=== PATIENT | male | born 1940 | race Caucasian/White ===

== ENCOUNTER 2022-03-26 22:59 | Inpatient (IN) | payer OTHER ==
[2022-03-27 00:27] LABS: INR 1.52 (0.83-1.09); PROTHROMBIN TIME (PATIENT) 17.5 SEC (9.7-13.0)
[2022-03-27 00:29] LABS: ACTIVATED PTT 32.9 SECONDS (25.2-36.5)
[2022-03-27 00:32] LABS: BASO % 0.7 % (0-2.0); EOS % 1.4 % (0-4.5); HEMATOCRIT 27.9 % (35.4-49); HEMOGLOBIN 8.7 GM/dL (11.7-16.9); LYMPH % 14.5 % (8-40); MCH 31.1 pg (25.7-33.7); MCHC 31.2 g/dl (32.0-35.9); MEAN CELL VOLUME 99.6 fl (80-96); MEAN PLT VOLUME 8.8 fl (7.5-11.1); MONO % 5.7 % (3.8-10.2); NEUT % 77.7 % (42.8-82.8); PLATELET COUNT 96 10^3/uL (134-434); RBC 2.81 M/mm3 (4.00-5.60); RDW 21.6 % (11.9-15.9)
[2022-03-27 00:45] LABS: CALCIUM 9.5 mg/dL (8.5-10.1)
[2022-03-27 00:46] LABS: ALBUMIN 3.9 g/dl (3.4-5.0); BLOOD UREA NITROGEN 73.4 mg/dL (7-18)
[2022-03-27 00:49] LABS: CREATININE 3.3 mg/dL (0.55-1.3)
[2022-03-27 00:50] LABS: BILIRUBIN,TOTAL 1.5 mg/dL (0.2-1); TOT PROT 7.6 g/dl (6.4-8.2)
[2022-03-27 02:05] LABS: N-TERMINAL BNP 34130.6 pg/ml (5-450)
[2022-03-27] MEDS ORDERED: FUROSEMIDE 100 MG/10 ML INJECTABLE VIAL IVPB ONE (02:06)
[2022-03-27] MEDS ORDERED: FUROSEMIDE 40 MG/4 ML INJECTABLE VIAL ONE (02:45)
[2022-03-27 03:09] LABS: ANISOCYTOSIS 2+; MACROCYTOSIS 0; OVALOCYTE 2+
[2022-03-27 09:46] LABS: EPI CELLS 4 /uL (0-25.1); HYALINE CASTS 2 /uL (0-3.1); PH,URINE 5.5 (5.0-8.0); URINE APPEARANCE CLEAR; URINE BACTERIA 26 /uL (0-1359); URINE BILIRUBIN NEGATIVE (NEGATIVE); URINE COLOR YELLOW; URINE GLUCOSE (UA) NEGATIVE (NEGATIVE); URINE KETONE NEGATIVE (NEGATIVE); URINE LEUK ESTERASE NEGATIVE (NEGATIVE); URINE NITRITE NEGATIVE (NEGATIVE); URINE PROTEIN 1+ (NEGATIVE); URINE RBC 4 /uL (0-23.9); URINE UROBILINOGEN 0.2 mg/dL (0.2-1.0); URINE WBC 1 /uL (0-25.8)
[2022-03-27] MEDS ORDERED: TAMSULOSIN HCL 0.4 MG CAP ONE (10:00)
[2022-03-27] MEDS ORDERED: DIGOXIN 0.125 MG TABLET ONE (10:00)
[2022-03-27] MEDS ORDERED: CARVEDILOL 25 MG TABLET (FP) ONE (10:00)
[2022-03-27] MEDS ORDERED: ISOSORBIDE MONONITRATE 30 MG TAB.SR.24H (FP) PO ONE (10:01)
[2022-03-27] MEDS: CARVEDILOL 25 MG TABLET (FP) PO SCH ×2 (10:25→23:02)
[2022-03-27] MEDS: TAMSULOSIN HCL 0.4 MG CAP PO SCH (10:25)
[2022-03-27] MEDS: ISOSORBIDE MONONITRATE 30 MG TAB.SR.24H (FP) PO SCH (10:25)
[2022-03-27] MEDS: DIGOXIN 0.125 MG TABLET PO SCH (10:25)
[2022-03-27] MEDS: DUTASTERIDE 0.5 MG CAP (FP) PO SCH (11:00)
[2022-03-27] MEDS: SACUBITRIL/VALSARTAN 97 MG-103 MG TABLET PO SCH ×2 (11:00→23:03)
[2022-03-27] MEDS: VERICIGUAT 2.5 MG PO SCH (11:55)
[2022-03-27] MEDS ORDERED: WARFARIN NA 1 MG TABLET ONE (17:36)
[2022-03-27] MEDS: WARFARIN NA 2 MG TABLET PO SCH (17:45)
[2022-03-27] MEDS: ATORVASTATIN CA 10 MG TABLET (FP) PO SCH (23:04)
[2022-03-28 01:06] VITALS: BMI 21.9
[2022-03-28 08:15] LABS: INR 1.82 (0.83-1.09)
[2022-03-28 08:18] LABS: ACTIVATED PTT 30.5 SECONDS (25.2-36.5); BASO % 0.8 % (0-2.0); EOS % 0.5 % (0-4.5); HEMATOCRIT 26.4 % (35.4-49); HEMOGLOBIN 8.4 GM/dL (11.7-16.9); LYMPH % 12.5 % (8-40); MCH 31.2 pg (25.7-33.7); MCHC 31.6 g/dl (32.0-35.9); MEAN CELL VOLUME 98.7 fl (80-96); MEAN PLT VOLUME 9.1 fl (7.5-11.1); MONO % 4.4 % (3.8-10.2); NEUT % 81.8 % (42.8-82.8); PLATELET COUNT 86 10^3/uL (134-434); RBC 2.68 M/mm3 (4.00-5.60); RDW 21.3 % (11.9-15.9); WHITE BLOOD COUNT 7.2 K/mm3 (4.0-10.0)
[2022-03-28] MEDS: TAMSULOSIN HCL 0.4 MG CAP PO SCH (08:26)
[2022-03-28 08:41] LABS: ALBUMIN 3.5 g/dl (3.4-5.0); CALCIUM 8.9 mg/dL (8.5-10.1)
[2022-03-28 08:42] LABS: MAGNESIUM 2.5 mg/dL (1.8-2.4)
[2022-03-28 08:44] LABS: CREATININE 3.4 mg/dL (0.55-1.3); PHOSPHOROUS 3.4 mg/dL (2.5-4.9)
[2022-03-28 08:45] LABS: BILIRUBIN,TOTAL 1.6 mg/dL (0.2-1); TOT PROT 6.7 g/dl (6.4-8.2)
[2022-03-28] MEDS ORDERED: ASPIRIN 325 MG TABLET ONE (09:39)
[2022-03-28] MEDS: FUROSEMIDE 40 MG/4 ML INJECTABLE VIAL IVPUSH SCH (10:12)
[2022-03-28] MEDS: CARVEDILOL 25 MG TABLET (FP) PO SCH ×2 (10:13→21:53)
[2022-03-28] MEDS: DUTASTERIDE 0.5 MG CAP (FP) PO SCH (10:13)
[2022-03-28] MEDS: SACUBITRIL/VALSARTAN 97 MG-103 MG TABLET PO SCH ×2 (10:14→21:52)
[2022-03-28] MEDS: ISOSORBIDE MONONITRATE 30 MG TAB.SR.24H (FP) PO SCH ×2 (10:14→15:37)
[2022-03-28] MEDS: VERICIGUAT 2.5 MG PO SCH (10:17)
[2022-03-28] MEDS: WARFARIN NA 2 MG TABLET PO SCH (17:32)
[2022-03-28] MEDS: ATORVASTATIN CA 10 MG TABLET (FP) PO SCH (21:53)
[2022-03-29 07:33] LABS: BASO % 0.8 % (0-2.0); EOS % 1.3 % (0-4.5); HEMATOCRIT 26.4 % (35.4-49); HEMOGLOBIN 8.3 GM/dL (11.7-16.9); LYMPH % 16.9 % (8-40); MCH 31.4 pg (25.7-33.7); MCHC 31.5 g/dl (32.0-35.9); MEAN CELL VOLUME 99.5 fl (80-96); MEAN PLT VOLUME 8.5 fl (7.5-11.1); MONO % 5.7 % (3.8-10.2); NEUT % 75.3 % (42.8-82.8); PLATELET COUNT 78 10^3/uL (134-434); RBC 2.65 M/mm3 (4.00-5.60); RDW 20.9 % (11.9-15.9); WHITE BLOOD COUNT 6.3 K/mm3 (4.0-10.0)
[2022-03-29 07:43] LABS: CALCIUM 9.1 mg/dL (8.5-10.1)
[2022-03-29 07:44] LABS: BLOOD UREA NITROGEN 82.2 mg/dL (7-18)
[2022-03-29 07:47] LABS: CREATININE 3.5 mg/dL (0.55-1.3)
[2022-03-29 07:58] LABS: INR 2.17 (0.83-1.09); PROTHROMBIN TIME (PATIENT) 25.2 SEC (9.7-13.0)
[2022-03-29 08:35] LABS: MAGNESIUM 2.5 mg/dL (1.8-2.4)
[2022-03-29 08:38] LABS: BILIRUBIN,DIRECT 0.6 mg/dL (0.0-0.2); PHOSPHOROUS 3.6 mg/dL (2.5-4.9)
[2022-03-29] MEDS: TAMSULOSIN HCL 0.4 MG CAP PO SCH (09:13)
[2022-03-29 09:17] VITALS: BP 96/56; RESP 18; TEMP 98.3
[2022-03-29] MEDS: SACUBITRIL/VALSARTAN 97 MG-103 MG TABLET PO SCH (10:01)
[2022-03-29] MEDS: FUROSEMIDE 40 MG/4 ML INJECTABLE VIAL IVPUSH SCH (10:01)
[2022-03-29] MEDS: DIGOXIN 0.125 MG TABLET PO SCH (10:01)
[2022-03-29] MEDS: DUTASTERIDE 0.5 MG CAP (FP) PO SCH (10:01)
[2022-03-29] MEDS: CARVEDILOL 25 MG TABLET (FP) PO SCH (10:03)
[2022-03-29] MEDS: ISOSORBIDE MONONITRATE 30 MG TAB.SR.24H (FP) PO SCH (10:04)
[2022-03-29] MEDS: VERICIGUAT 2.5 MG PO SCH (10:04)
[2022-03-29 10:06] VITALS: PULSE 90
== END 2022-03-29 15:57 | disposition home or self-care (01) | DRG 291 ==
LOC: JER 22:59 → JERBED 03-27 01:10 → J4W 03-27 21:23
PROVIDERS: ADMIT Internal Medicine; ATTEND Internal Medicine
DX: I13.0 Hypertensive heart and chronic kidney disease with heart failure and stage 1 through stage 4 chronic kidney disease, or unspecified chronic kidney disease (principal); I50.23 Acute on chronic systolic (congestive) heart failure; N17.9 Acute kidney failure, unspecified; I48.21 Permanent atrial fibrillation; I47.2 Ventricular tachycardia; I42.8 Other cardiomyopathies; I48.91 Unspecified atrial fibrillation; N40.0 Benign prostatic hyperplasia without lower urinary tract symptoms; Z95.0 Presence of cardiac pacemaker; D64.9 Anemia, unspecified; I73.9 Peripheral vascular disease, unspecified; R33.9 Retention of urine, unspecified; G47.31 Primary central sleep apnea; I44.7 Left bundle-branch block, unspecified; N18.9 Chronic kidney disease, unspecified; I25.10 Atherosclerotic heart disease of native coronary artery without angina pectoris
CPT/HCPCS: 0241U-QW; 36415; 71045-TC-FY; 76775-TC; 80048; 80053; 80061; 80162; 81003; 82248; 82436; 83036; 83735; 83880; 84100; 84133; 84300; 84443; 84484; 84540; 85025; 85610; 85730; 87086; 93005; 93010; 93306-TC; 97116-GP; 99285-25

== ENCOUNTER 2022-04-29 06:55 | Inpatient (IN) | payer OTHER ==
[2022-04-29 09:25] LABS: BASO % 0.8 % (0-2.0); EOS % 1.5 % (0-4.5); HEMATOCRIT 25.5 % (35.4-49); HEMOGLOBIN 7.8 GM/dL (11.7-16.9); LYMPH % 12.9 % (8-40); MCHC 30.7 g/dl (32.0-35.9); MEAN CELL VOLUME 101.1 fl (80-96); MEAN PLT VOLUME 9.1 fl (7.5-11.1); MONO % 6.9 % (3.8-10.2); NEUT % 77.9 % (42.8-82.8); PLATELET COUNT 102 10^3/uL (134-434); RBC 2.52 M/mm3 (4.00-5.60); RDW 22.5 % (11.9-15.9); WHITE BLOOD COUNT 5.7 K/mm3 (4.0-10.0)
[2022-04-29 09:28] LABS: VENOUS BASE EXCESS -2.5 mmol/L (-2-2); VENOUS O2 SATURATION 23.7 % (70-80); VENOUS PCO2 40.3 mmHg (38-52); VENOUS PH 7.367 (7.310-7.410)
[2022-04-29 09:45] LABS: ALBUMIN 3.6 g/dl (3.4-5.0); CALCIUM 9.2 mg/dL (8.5-10.1)
[2022-04-29 09:46] LABS: BLOOD UREA NITROGEN 70.2 mg/dL (7-18)
[2022-04-29 09:49] LABS: CREATININE 3.6 mg/dL (0.55-1.3)
[2022-04-29 09:50] LABS: BILIRUBIN,TOTAL 1.5 mg/dL (0.2-1); TOT PROT 6.5 g/dl (6.4-8.2)
[2022-04-29 09:54] LABS: N-TERMINAL BNP 26479.5 pg/ml (5-450)
[2022-04-29] MEDS ORDERED: DIGOXIN 0.125 MG TABLET PO SCH (12:00)
[2022-04-29 13:00] LABS: ANISOCYTOSIS 1+; MACROCYTOSIS 1+; OVALOCYTE 1+
[2022-04-29] MEDS ORDERED: FUROSEMIDE 40 MG/4 ML INJECTABLE VIAL IVPUSH ONE (14:29)
[2022-04-29 17:50] LABS: PROTHROMBIN TIME (PATIENT) 87.1 SEC (9.7-13.0)
[2022-04-29] MEDS ORDERED: WARFARIN NA 3 MG TABLET PO SCH (18:00)
[2022-04-29 19:23] LABS: INR 7.42 (0.83-1.09)
[2022-04-29] MEDS: NIACIN 500 MG TABLET PO SCH (21:43)
[2022-04-29] MEDS: CARVEDILOL 12.5 MG TABLET (FP) PO SCH (21:43)
[2022-04-29] MEDS ORDERED: CARVEDILOL 25 MG TABLET (FP) PO SCH (22:00)
[2022-04-29] MEDS ORDERED: ATORVASTATIN CA 10 MG TABLET (FP) PO SCH (22:00)
[2022-04-30 08:10] LABS: ALBUMIN 3.2 g/dl (3.4-5.0); BLOOD UREA NITROGEN 73.1 mg/dL (7-18); CALCIUM 8.8 mg/dL (8.5-10.1)
[2022-04-30 08:14] LABS: CREATININE 3.6 mg/dL (0.55-1.3)
[2022-04-30 08:16] LABS: BILIRUBIN,TOTAL 1.7 mg/dL (0.2-1)
[2022-04-30 08:18] LABS: TOT PROT 5.8 g/dl (6.4-8.2)
[2022-04-30 08:21] LABS: PROTHROMBIN TIME (PATIENT) 94.1 SEC (9.7-13.0)
[2022-04-30 08:53] LABS: INR 8.01 (0.83-1.09)
[2022-04-30] MEDS: CARVEDILOL 12.5 MG TABLET (FP) PO SCH ×2 (10:39→21:47)
[2022-04-30] MEDS: TORSEMIDE 20 MG TABLET (FP) PO SCH (10:39)
[2022-04-30] MEDS: COLLAGENASE CLOSTRIDIUM HIST. 30 GRAMS TUBE TP SCH (12:08)
[2022-04-30 13:35] LABS: BASO % 1.1 % (0-2.0); EOS % 0.8 % (0-4.5); HEMATOCRIT 27.2 % (35.4-49); HEMOGLOBIN 8.3 GM/dL (11.7-16.9); LYMPH % 17.7 % (8-40); MCHC 30.5 g/dl (32.0-35.9); MEAN CELL VOLUME 101.9 fl (80-96); NEUT % 70.4 % (42.8-82.8); PLATELET COUNT 101 10^3/uL (134-434); RBC 2.67 M/mm3 (4.00-5.60); RDW 23.2 % (11.9-15.9); WHITE BLOOD COUNT 5.2 K/mm3 (4.0-10.0)
[2022-04-30 14:01] LABS: ALBUMIN 3.5 g/dl (3.4-5.0); BLOOD UREA NITROGEN 72.9 mg/dL (7-18); MAGNESIUM 2.7 mg/dL (1.8-2.4)
[2022-04-30 14:03] LABS: CALCIUM 9.1 mg/dL (8.5-10.1)
[2022-04-30 14:04] LABS: CREATININE 3.6 mg/dL (0.55-1.3)
[2022-04-30 14:07] LABS: BILIRUBIN,TOTAL 1.8 mg/dL (0.2-1); TOT PROT 6.6 g/dl (6.4-8.2)
[2022-04-30 15:06] VITALS: BMI 22.0
[2022-04-30] MEDS: NIACIN 500 MG TABLET PO SCH (21:47)
[2022-04-30] MEDS: ATORVASTATIN CA 10 MG TABLET (FP) PO SCH (21:47)
[2022-05-01 08:25] LABS: BASO % 0.8 % (0-2.0); EOS % 0.8 % (0-4.5); HEMATOCRIT 25.1 % (35.4-49); HEMOGLOBIN 7.7 GM/dL (11.7-16.9); LYMPH % 19.8 % (8-40); MCH 31.3 pg (25.7-33.7); MCHC 30.8 g/dl (32.0-35.9); MEAN CELL VOLUME 101.6 fl (80-96); MONO % 7.7 % (3.8-10.2); NEUT % 70.9 % (42.8-82.8); PLATELET COUNT 83 10^3/uL (134-434); RBC 2.47 M/mm3 (4.00-5.60); RDW 22.4 % (11.9-15.9); WHITE BLOOD COUNT 5.4 K/mm3 (4.0-10.0)
[2022-05-01 08:27] LABS: PROTHROMBIN TIME (PATIENT) 73.2 SEC (9.7-13.0)
[2022-05-01 08:36] LABS: INR 6.25 (0.83-1.09)
[2022-05-01 08:37] LABS: ALBUMIN 3.3 g/dl (3.4-5.0); CALCIUM 9.1 mg/dL (8.5-10.1); MAGNESIUM 2.4 mg/dL (1.8-2.4)
[2022-05-01 08:41] LABS: BILIRUBIN,TOTAL 1.7 mg/dL (0.2-1); CREATININE 3.6 mg/dL (0.55-1.3)
[2022-05-01] MEDS: TORSEMIDE 20 MG TABLET (FP) PO SCH (10:04)
[2022-05-01] MEDS: DIGOXIN 0.125 MG TABLET PO SCH (10:04)
[2022-05-01] MEDS: COLLAGENASE CLOSTRIDIUM HIST. 30 GRAMS TUBE TP SCH (10:05)
[2022-05-01] MEDS: CARVEDILOL 12.5 MG TABLET (FP) PO SCH ×2 (10:05→21:11)
[2022-05-01 10:43] LABS: PHOSPHOROUS 3.8 mg/dL (2.5-4.9)
[2022-05-01] MEDS: VERICIGUAT 2.5 MG PO SCH (12:42)
[2022-05-01] MEDS: ACETAMINOPHEN 325 MG TABLET (FP) PO PRN (20:11)
[2022-05-01] MEDS: NIACIN 500 MG TABLET PO SCH (21:11)
[2022-05-01] MEDS ORDERED: CYCLOBENZAPRINE HCL 10 MG TABLET (FP) PO ONE (21:38)
[2022-05-02] MEDS: CARVEDILOL 12.5 MG TABLET (FP) PO SCH ×2 (09:31→21:10)
[2022-05-02] MEDS: TORSEMIDE 20 MG TABLET (FP) PO SCH (09:31)
[2022-05-02] MEDS: VERICIGUAT 2.5 MG PO SCH (09:32)
[2022-05-02] MEDS: COLLAGENASE CLOSTRIDIUM HIST. 30 GRAMS TUBE TP SCH (09:32)
[2022-05-02 11:11] LABS: PHOSPHOROUS 3.8 mg/dL (2.5-4.9)
[2022-05-02] MEDS: ACETAMINOPHEN 325 MG TABLET (FP) PO PRN ×2 (13:27→20:08)
[2022-05-02] MEDS ORDERED: TAMSULOSIN HCL 0.4 MG CAP PO SCH (13:40)
[2022-05-02 16:12] LABS: BASO % 0.8 % (0-2.0); HEMATOCRIT 26.1 % (35.4-49); HEMOGLOBIN 7.9 GM/dL (11.7-16.9); MCH 31.3 pg (25.7-33.7); MCHC 30.3 g/dl (32.0-35.9); MEAN CELL VOLUME 103.1 fl (80-96); MEAN PLT VOLUME 8.9 fl (7.5-11.1); MONO % 7.4 % (3.8-10.2); NEUT % 73.8 % (42.8-82.8); PLATELET COUNT 86 10^3/uL (134-434); RBC 2.53 M/mm3 (4.00-5.60); RDW 22.5 % (11.9-15.9); WHITE BLOOD COUNT 5.8 K/mm3 (4.0-10.0)
[2022-05-02 16:23] LABS: INR 3.47 (0.83-1.09); PROTHROMBIN TIME (PATIENT) 40.4 SEC (9.7-13.0)
[2022-05-02 16:31] LABS: CALCIUM 8.8 mg/dL (8.5-10.1)
[2022-05-02 16:32] LABS: ALBUMIN 3.4 g/dl (3.4-5.0); BLOOD UREA NITROGEN 76.6 mg/dL (7-18); MAGNESIUM 2.4 mg/dL (1.8-2.4)
[2022-05-02 16:35] LABS: CREATININE 3.7 mg/dL (0.55-1.3)
[2022-05-02 16:36] LABS: BILIRUBIN,TOTAL 1.4 mg/dL (0.2-1); TOT PROT 6.2 g/dl (6.4-8.2)
[2022-05-02] MEDS ORDERED: CYCLOBENZAPRINE HCL 10 MG TABLET (FP) PO ONE (19:42)
[2022-05-02 20:09] LABS: URINE APPEARANCE CLEAR; URINE BILIRUBIN NEGATIVE (NEGATIVE); URINE COLOR YELLOW; URINE GLUCOSE (UA) NEGATIVE (NEGATIVE); URINE KETONE NEGATIVE (NEGATIVE); URINE LEUK ESTERASE NEGATIVE (NEGATIVE); URINE NITRITE NEGATIVE (NEGATIVE); URINE PROTEIN TRACE (NEGATIVE); URINE UROBILINOGEN 0.2 mg/dL (0.2-1.0)
[2022-05-02] MEDS: ATORVASTATIN CA 10 MG TABLET (FP) PO SCH (21:10)
[2022-05-02] MEDS: TAMSULOSIN HCL 0.4 MG CAP PO SCH (21:11)
[2022-05-02] MEDS: NIACIN 500 MG TABLET PO SCH (21:11)
[2022-05-03] MEDS: ACETAMINOPHEN 325 MG TABLET (FP) PO PRN ×2 (06:04→14:34)
[2022-05-03 07:03] VITALS: RESP 18
[2022-05-03 09:15] LABS: EOS % 1.9 % (0-4.5); HEMATOCRIT 25.6 % (35.4-49); HEMOGLOBIN 7.9 GM/dL (11.7-16.9); LYMPH % 12.5 % (8-40); MCH 31.5 pg (25.7-33.7); MCHC 30.8 g/dl (32.0-35.9); MEAN CELL VOLUME 102.3 fl (80-96); MEAN PLT VOLUME 9.1 fl (7.5-11.1); MONO % 7.7 % (3.8-10.2); NEUT % 76.9 % (42.8-82.8); PLATELET COUNT 79 10^3/uL (134-434); RBC 2.51 M/mm3 (4.00-5.60); RDW 22.3 % (11.9-15.9); WHITE BLOOD COUNT 6.3 K/mm3 (4.0-10.0)
[2022-05-03 09:31] LABS: CALCIUM 8.7 mg/dL (8.5-10.1)
[2022-05-03 09:32] LABS: ALBUMIN 3.3 g/dl (3.4-5.0); BLOOD UREA NITROGEN 81.6 mg/dL (7-18); MAGNESIUM 2.4 mg/dL (1.8-2.4)
[2022-05-03 09:35] LABS: CREATININE 3.8 mg/dL (0.55-1.3); PHOSPHOROUS 4.2 mg/dL (2.5-4.9)
[2022-05-03 09:36] LABS: BILIRUBIN,TOTAL 1.5 mg/dL (0.2-1)
[2022-05-03] MEDS: TORSEMIDE 20 MG TABLET (FP) PO SCH (10:38)
[2022-05-03] MEDS: TAMSULOSIN HCL 0.4 MG CAP PO SCH (10:38)
[2022-05-03] MEDS: VERICIGUAT 2.5 MG PO SCH (10:39)
[2022-05-03] MEDS: COLLAGENASE CLOSTRIDIUM HIST. 30 GRAMS TUBE TP SCH (10:39)
[2022-05-03] MEDS: CARVEDILOL 12.5 MG TABLET (FP) PO SCH (10:39)
[2022-05-03] MEDS: DIGOXIN 0.125 MG TABLET PO SCH (10:49)
[2022-05-03] MEDS ORDERED: EPOETIN ALFA-EPBX 10,000 UNIT/ML VIAL SQ ONE (12:00)
[2022-05-03 16:17] LABS: INR 3.13 (0.83-1.09); PROTHROMBIN TIME (PATIENT) 36.4 SEC (9.7-13.0)
[2022-05-03 18:24] VITALS: BP 131/50; PULSE 77; TEMP 97.2
== END 2022-05-03 18:29 | disposition home health service (06) | DRG 291 ==
LOC: JER 06:55 → JERBED 11:11 → J4S 13:34
PROVIDERS: ADMIT Internal Medicine; ATTEND Nurse Practitioner Family
DX: I13.0 Hypertensive heart and chronic kidney disease with heart failure and stage 1 through stage 4 chronic kidney disease, or unspecified chronic kidney disease (principal); I50.23 Acute on chronic systolic (congestive) heart failure; L97.919 Non-pressure chronic ulcer of unspecified part of right lower leg with unspecified severity; Q60.0 Renal agenesis, unilateral; I47.20 Ventricular tachycardia, unspecified; D63.8 Anemia in other chronic diseases classified elsewhere; N18.9 Chronic kidney disease, unspecified; I25.10 Atherosclerotic heart disease of native coronary artery without angina pectoris; I48.91 Unspecified atrial fibrillation; N40.0 Benign prostatic hyperplasia without lower urinary tract symptoms
CPT/HCPCS: 0241U-QW; 36415; 71045-TC-FY; 80053; 80162; 81003; 82272; 82728; 82803; 83540; 83550; 83735; 83880; 84100; 84484; 85025; 85610; 86850; 86900; 86901; 87070; 87086; 87186; 87205; 93005; 93010; 94761; 97116-GP; 97162-GP; 99285-25

== ENCOUNTER 2022-05-18 18:13 | Inpatient (IN) | payer OTHER ==
[2022-05-18] MEDS ORDERED: SODIUM CHLORIDE 0.9% 500 ML INFUS.BAG IV ONE (19:01)
[2022-05-18 20:02] LABS: BASO % 0.2 % (0-2.0); HEMOGLOBIN 7.9 GM/dL (11.7-16.9); LYMPH % 2.6 % (8-40); MCH 31.4 pg (25.7-33.7); MCHC 30.5 g/dl (32.0-35.9); MEAN PLT VOLUME 8.2 fl (7.5-11.1); MONO % 3.6 % (3.8-10.2); NEUT % 93.6 % (42.8-82.8); PLATELET COUNT 79 10^3/uL (134-434); RBC 2.52 M/mm3 (4.00-5.60); RDW 23.4 % (11.9-15.9); WHITE BLOOD COUNT 14.3 K/mm3 (4.0-10.0)
[2022-05-18 20:10] LABS: INR 3.14 (0.83-1.09); PROTHROMBIN TIME (PATIENT) 36.5 SEC (9.7-13.0)
[2022-05-18] MEDS ORDERED: VANCOMYCIN 1 GM in D5W (PRE-DOCKED) 1,000 MG/250 ML IVPB ONE (20:15)
[2022-05-18] MEDS ORDERED: PIPERACILLIN/TAZOB 3.375 GM 3.375 GM in DEXTROSE 5%-WATER - 50 ML IVPB ONE (20:15)
[2022-05-18] MEDS ORDERED: VANCOMYCIN/WATER FOR INJ (PEG) 1,000 MG/200 ML BAG IVPB ONE (20:18)
[2022-05-18] MEDS ORDERED: PIPERACILLIN/TAZOB 3.375 GM 3.375 GM/50 ML BAG IVPB ONE (20:19)
[2022-05-18 20:22] LABS: CALCIUM 8.9 mg/dL (8.5-10.1)
[2022-05-18 20:23] LABS: ALBUMIN 3.2 g/dl (3.4-5.0); BLOOD UREA NITROGEN 91.9 mg/dL (7-18)
[2022-05-18 20:26] LABS: CREATININE 3.8 mg/dL (0.55-1.3); VENOUS BASE EXCESS -2.4 mmol/L (-2-2); VENOUS O2 SATURATION 37.6 % (70-80); VENOUS PCO2 44.3 mmHg (38-52); VENOUS PH 7.339 (7.310-7.410)
[2022-05-18 20:28] LABS: BILIRUBIN,TOTAL 1.4 mg/dL (0.2-1)
[2022-05-18 21:06] LABS: N-TERMINAL BNP 38533.8 pg/ml (5-450)
[2022-05-18] MEDS ORDERED: ACETAMINOPHEN 325 MG TABLET (FP) PO PRN (21:22)
[2022-05-18] MEDS ORDERED: NOREPINEPHRINE BITARTRATE/D5W 8 MG/250 ML BAG IVPB SCH (21:30)
[2022-05-18] MEDS ORDERED: FUROSEMIDE 40 MG/4 ML INJECTABLE VIAL IVPUSH SCH (21:30)
[2022-05-18] MEDS ORDERED: ATORVASTATIN CA 10 MG TABLET (FP) PO ONE (21:34)
[2022-05-18 22:07] LABS: ANISOCYTOSIS 1+; MACROCYTOSIS 0; PLATELET ESTIMATE DECREASED
[2022-05-19] MEDS ORDERED: ATORVASTATIN CA 10 MG TABLET (FP) ONE (02:12)
[2022-05-19] MEDS ORDERED: FUROSEMIDE 100 MG/10 ML INJECTABLE VIAL IVPUSH SCH (06:19)
[2022-05-19] MEDS ORDERED: FUROSEMIDE 40 MG/4 ML INJECTABLE VIAL IVPUSH SCH ×2 (07:49→13:27)
[2022-05-19] MEDS ORDERED: ALBUTEROL SO4 2.5/IPRATROPIUM 0.5 INH SOL 3 ML VIAL.NEB. NEB ONE (09:22)
[2022-05-19] MEDS ORDERED: PANTOPRAZOLE 40 MG TABLET PO SCH (10:00)
[2022-05-19] MEDS ORDERED: PIPERACILLIN/TAZOB 4.5 GM 4.5 GM in DEXTROSE 5%-WATER 100 ML IVPB SCH (10:00)
[2022-05-19] MEDS ORDERED: COLLAGENASE CLOSTRIDIUM HIST. 30 GRAMS TUBE TP SCH (10:00)
[2022-05-19] MEDS ORDERED: CARVEDILOL 12.5 MG TABLET (FP) PO SCH ×2 (10:00→14:00)
[2022-05-19] MEDS ORDERED: ALLOPURINOL 100 MG TABLET (FP) PO SCH ×2 (10:00→22:00)
[2022-05-19 10:53] LABS: BLOOD UREA NITROGEN 90.1 mg/dL (7-18); CALCIUM 8.5 mg/dL (8.5-10.1); MAGNESIUM 2.5 mg/dL (1.8-2.4)
[2022-05-19 10:56] LABS: CREATININE 3.8 mg/dL (0.55-1.3); PHOSPHOROUS 6.1 mg/dL (2.5-4.9)
[2022-05-19 10:58] LABS: BILIRUBIN,TOTAL 1.8 mg/dL (0.2-1); TOT PROT 5.7 g/dl (6.4-8.2)
[2022-05-19] MEDS: PIPERACILLIN/TAZOB 4.5 GM 4.5 GM in DEXTROSE 5%-WATER 100 ML IVPB SCH ×2 (11:00→22:17)
[2022-05-19] MEDS: MUPIROCIN 2% TOPICAL OINTMENT FOR DECOLONIZATION NS SCH ×2 (11:01→22:07)
[2022-05-19] MEDS: CHLORHEXIDINE GLUCONATE 4% CLEANSER FOR DECOLONIZATION TP SCH ×2 (11:01→22:07)
[2022-05-19 11:50] LABS: HEMATOCRIT 29.5 % (35.4-49); HEMOGLOBIN 9.1 GM/dL (11.7-16.9); MCH 30.8 pg (25.7-33.7); MCHC 30.9 g/dl (32.0-35.9); MEAN CELL VOLUME 99.8 fl (80-96); MEAN PLT VOLUME 8.4 fl (7.5-11.1); PLATELET COUNT 66 10^3/uL (134-434); RBC 2.96 M/mm3 (4.00-5.60); RDW 23.6 % (11.9-15.9); WHITE BLOOD COUNT 15.7 K/mm3 (4.0-10.0)
[2022-05-19 11:54] LABS: PROTHROMBIN TIME (PATIENT) 49.3 SEC (9.7-13.0)
[2022-05-19 12:03] LABS: INR 4.23 (0.83-1.09)
[2022-05-19 13:03] LABS: ANISOCYTOSIS 1+; MACROCYTOSIS 1+; OVALOCYTE 1+; TEAR DROP CELLS 1+
[2022-05-19 13:05] LABS: PLATELET ESTIMATE DECREASED
[2022-05-19] MEDS ORDERED: VERICIGUAT 2.5 MG PO SCH (13:30)
[2022-05-19] MEDS ORDERED: DIGOXIN 0.125 MG TABLET PO SCH (14:00)
[2022-05-19] MEDS ORDERED: DUTASTERIDE 0.5 MG CAP (FP) PO SCH (14:00)
[2022-05-19] MEDS ORDERED: TAMSULOSIN HCL 0.4 MG CAP PO SCH (14:00)
[2022-05-19] MEDS: FOLIC ACID 1 MG TABLET (FP) PO SCH ×2 (15:31→22:17)
[2022-05-19] MEDS: ERYTHROMYCIN 0.5% OPHTHALMIC OINTMENT 3.5 GM TUBE OD SCH ×3 (16:47→23:28)
[2022-05-19] MEDS: DIGOXIN 0.125 MG TABLET PO SCH (16:49)
[2022-05-19] MEDS ORDERED: ATORVASTATIN CA 10 MG TABLET (FP) PO SCH (22:00)
[2022-05-19] MEDS ORDERED: NIACIN 500 MG TABLET PO SCH (22:00)
[2022-05-19] MEDS ORDERED: CYANOCOBALAMIN 1,000 MCG TABLET (FP) PO SCH (22:00)
[2022-05-20] MEDS ORDERED: ACETAMINOPHEN 325 MG TABLET (FP) PO PRN (00:06)
[2022-05-20 00:29] LABS: EPI CELLS 19 /uL (0-25.1); HYALINE CASTS 9 /uL (0-3.1); URINE APPEARANCE CLOUDY; URINE BACTERIA 11 /uL (0-1359); URINE BILIRUBIN NEGATIVE (NEGATIVE); URINE COLOR YELLOW; URINE GLUCOSE (UA) NEGATIVE (NEGATIVE); URINE KETONE NEGATIVE (NEGATIVE); URINE LEUK ESTERASE 1+ (NEGATIVE); URINE NITRITE NEGATIVE (NEGATIVE); URINE PROTEIN 1+ (NEGATIVE); URINE RBC 22 /uL (0-23.9); URINE UROBILINOGEN 0.2 mg/dL (0.2-1.0); URINE WBC 49 /uL (0-25.8)
[2022-05-20] MEDS: ERYTHROMYCIN 0.5% OPHTHALMIC OINTMENT 3.5 GM TUBE OD SCH ×5 (03:30→21:52)
[2022-05-20] MEDS: FOLIC ACID 1 MG TABLET (FP) PO SCH ×3 (06:33→21:53)
[2022-05-20 08:32] LABS: HEMATOCRIT 29.2 % (35.4-49); HEMOGLOBIN 9.1 GM/dL (11.7-16.9); MCH 31.2 pg (25.7-33.7); MEAN CELL VOLUME 100.9 fl (80-96); MEAN PLT VOLUME 9.8 fl (7.5-11.1); PLATELET COUNT 55 10^3/uL (134-434); RDW 24.4 % (11.9-15.9); WHITE BLOOD COUNT 13.6 K/mm3 (4.0-10.0)
[2022-05-20 08:37] LABS: PROTHROMBIN TIME (PATIENT) 50.9 SEC (9.7-13.0)
[2022-05-20 08:38] LABS: ACTIVATED PTT 42.3 SECONDS (25.2-36.5)
[2022-05-20 08:46] LABS: INR 4.36 (0.83-1.09)
[2022-05-20 09:00] LABS: CHLORIDE 106 mmol/L (98-107); SODIUM 140 mmol/L (136-145)
[2022-05-20] MEDS: TAMSULOSIN HCL 0.4 MG CAP PO SCH (09:00)
[2022-05-20 09:02] LABS: CALCIUM 8.9 mg/dL (8.5-10.1)
[2022-05-20 09:03] LABS: ALBUMIN 2.9 g/dl (3.4-5.0); ANION GAP 14 MMOL/L (8-16); CO2 20 mmol/L (21-32); GLUCOSE,RANDOM 127 mg/dL (74-106); MAGNESIUM 2.5 mg/dL (1.8-2.4)
[2022-05-20 09:06] LABS: CREATININE 3.9 mg/dL (0.55-1.3); SGOT/AST 20 U/L (15-37); SGPT/ALT 15 U/L (13-61)
[2022-05-20 09:07] LABS: BILIRUBIN,TOTAL 1.6 mg/dL (0.2-1)
[2022-05-20 09:08] LABS: ALK PHOS 42 U/L (45-117); TOT PROT 5.8 g/dl (6.4-8.2)
[2022-05-20 09:09] LABS: BLOOD UREA NITROGEN 104.2 mg/dL (7-18)
[2022-05-20] MEDS: PANTOPRAZOLE 40 MG TABLET PO SCH (09:31)
[2022-05-20] MEDS: ALLOPURINOL 100 MG TABLET (FP) PO SCH ×2 (09:31→21:54)
[2022-05-20] MEDS: CARVEDILOL 12.5 MG TABLET (FP) PO SCH ×2 (09:32→14:15)
[2022-05-20] MEDS: NIACIN 500 MG TABLET PO SCH ×2 (09:33→21:53)
[2022-05-20] MEDS ORDERED: MUPIROCIN 2% TOPICAL OINTMENT FOR DECOLONIZATION NS SCH (10:00)
[2022-05-20] MEDS ORDERED: PIPERACILLIN/TAZOB 4.5 GM 4.5 GM in DEXTROSE 5%-WATER 100 ML IVPB SCH (10:00)
[2022-05-20] MEDS ORDERED: MECOBALAMIN 1000 MCG PO SCH (10:00)
[2022-05-20] MEDS: COLLAGENASE CLOSTRIDIUM HIST. 30 GRAMS TUBE TP SCH (11:24)
[2022-05-20] MEDS ORDERED: FUROSEMIDE 40 MG/4 ML INJECTABLE VIAL IVPUSH SCH (14:00)
[2022-05-20] MEDS: DUTASTERIDE 0.5 MG CAP (FP) PO SCH (14:26)
[2022-05-20] MEDS ORDERED: ALBUTEROL SO4 2.5/IPRATROPIUM 0.5 INH SOL 3 ML VIAL.NEB. NEB ONE (16:02)
[2022-05-20] MEDS ORDERED: FUROSEMIDE 40 MG/4 ML INJECTABLE VIAL IVPUSH ONE (16:23)
[2022-05-20] MEDS: AMINO ACIDS/PROTEIN HYDROLYS 30 ML LIQUID.PKT PO SCH (16:55)
[2022-05-20] MEDS ORDERED: WARFARIN NA 2 MG TABLET PO SCH ×2 (18:00→22:00)
[2022-05-20] MEDS: PIPERACILLIN/TAZOB 2.25 GM 2.25 GM in DEXTROSE 5%-WATER - 50 ML IVPB SCH (18:39)
[2022-05-20] MEDS ORDERED: CHLORHEXIDINE GLUCONATE 4% CLEANSER FOR DECOLONIZATION TP SCH (22:00)
[2022-05-20 22:10] LABS: HEMATOCRIT 30.3 % (35.4-49); MCH 30.6 pg (25.7-33.7); MCHC 29.9 g/dl (32.0-35.9); MEAN CELL VOLUME 102.7 fl (80-96); MEAN PLT VOLUME 10.2 fl (7.5-11.1); PLATELET COUNT 59 10^3/uL (134-434); RBC 2.95 M/mm3 (4.00-5.60); RDW 24.5 % (11.9-15.9); WHITE BLOOD COUNT 13.6 K/mm3 (4.0-10.0)
[2022-05-20 23:04] LABS: ALBUMIN 2.8 g/dl (3.4-5.0); ALK PHOS 56 U/L (45-117); ANION GAP 18 MMOL/L (8-16); BILIRUBIN,TOTAL 1.4 mg/dL (0.2-1); BLOOD UREA NITROGEN 112.3 mg/dL (7-18); CALCIUM 8.6 mg/dL (8.5-10.1); CHLORIDE 109 mmol/L (98-107); CO2 14 mmol/L (21-32); CREATININE 4.4 mg/dL (0.55-1.3); GLUCOSE,RANDOM 169 mg/dL (74-106); MAGNESIUM 2.5 mg/dL (1.8-2.4); SGOT/AST 42 U/L (15-37); SGPT/ALT 17 U/L (13-61); SODIUM 141 mmol/L (136-145); TOT PROT 5.8 g/dl (6.4-8.2)
[2022-05-21] MEDS: PIPERACILLIN/TAZOB 2.25 GM 2.25 GM in DEXTROSE 5%-WATER - 50 ML IVPB SCH ×2 (02:59→10:34)
[2022-05-21] MEDS: CYANOCOBALAMIN 1,000 MCG TABLET (FP) PO SCH ×3 (02:59→22:18)
[2022-05-21 08:05] LABS: HEMATOCRIT 29.1 % (35.4-49); HEMOGLOBIN 9.1 GM/dL (11.7-16.9); MCH 31.1 pg (25.7-33.7); MCHC 31.2 g/dl (32.0-35.9); MEAN CELL VOLUME 99.9 fl (80-96); MEAN PLT VOLUME 9.5 fl (7.5-11.1); PLATELET COUNT 56 10^3/uL (134-434); RBC 2.91 M/mm3 (4.00-5.60); RDW 23.6 % (11.9-15.9); WHITE BLOOD COUNT 14.9 K/mm3 (4.0-10.0)
[2022-05-21 08:27] LABS: CHLORIDE 107 mmol/L (98-107); SODIUM 141 mmol/L (136-145)
[2022-05-21 08:35] LABS: ALBUMIN 2.9 g/dl (3.4-5.0); ANION GAP 14 MMOL/L (8-16); CO2 20 mmol/L (21-32); GLUCOSE,RANDOM 115 mg/dL (74-106); MAGNESIUM 2.7 mg/dL (1.8-2.4)
[2022-05-21 08:37] LABS: CREATININE 4.7 mg/dL (0.55-1.3); SGOT/AST 21 U/L (15-37); SGPT/ALT 18 U/L (13-61)
[2022-05-21 08:39] LABS: BILIRUBIN,TOTAL 1.3 mg/dL (0.2-1); TOT PROT 5.8 g/dl (6.4-8.2)
[2022-05-21 08:41] LABS: ALK PHOS 53 U/L (45-117)
[2022-05-21 08:52] LABS: BLOOD UREA NITROGEN 117.3 mg/dL (7-18)
[2022-05-21 09:17] LABS: ANISOCYTOSIS 2+; MACROCYTOSIS 2+; OVALOCYTE 2+
[2022-05-21] MEDS: AMINO ACIDS/PROTEIN HYDROLYS 30 ML LIQUID.PKT PO SCH ×2 (10:32→18:33)
[2022-05-21] MEDS: ERYTHROMYCIN 0.5% OPHTHALMIC OINTMENT 3.5 GM TUBE OD SCH ×3 (10:34→22:15)
[2022-05-21] MEDS: FUROSEMIDE 40 MG/4 ML INJECTABLE VIAL IVPUSH SCH (10:35)
[2022-05-21] MEDS: CARVEDILOL 12.5 MG TABLET (FP) PO SCH ×2 (11:59→14:07)
[2022-05-21] MEDS: TAMSULOSIN HCL 0.4 MG CAP PO SCH (11:59)
[2022-05-21] MEDS: PANTOPRAZOLE 40 MG TABLET PO SCH (12:00)
[2022-05-21] MEDS: NIACIN 500 MG TABLET PO SCH ×2 (12:00→22:17)
[2022-05-21] MEDS: ALLOPURINOL 100 MG TABLET (FP) PO SCH ×2 (12:00→22:18)
[2022-05-21] MEDS: COLLAGENASE CLOSTRIDIUM HIST. 30 GRAMS TUBE TP SCH (13:14)
[2022-05-21] MEDS: DUTASTERIDE 0.5 MG CAP (FP) PO SCH (13:35)
[2022-05-21] MEDS: FOLIC ACID 1 MG TABLET (FP) PO SCH ×2 (15:03→22:16)
[2022-05-21] MEDS ORDERED: ACETAMINOPHEN 1000 MG/100 ML BAG IVPB PRN (15:32)
[2022-05-21] MEDS ORDERED: WARFARIN NA 2 MG TABLET PO SCH (18:00)
[2022-05-21] MEDS ORDERED: ATORVASTATIN CA 10 MG TABLET (FP) PO SCH (22:00)
[2022-05-21 22:58] VITALS: BMI 23.2
[2022-05-22] MEDS: FOLIC ACID 1 MG TABLET (FP) PO SCH ×2 (06:42→10:44)
[2022-05-22] MEDS: ERYTHROMYCIN 0.5% OPHTHALMIC OINTMENT 3.5 GM TUBE OD SCH ×4 (06:42→22:00)
[2022-05-22 08:22] LABS: PROTHROMBIN TIME (PATIENT) 64.4 SEC (9.7-13.0)
[2022-05-22 08:30] LABS: HEMOGLOBIN 8.8 GM/dL (11.7-16.9); MCH 31.5 pg (25.7-33.7); MCHC 31.3 g/dl (32.0-35.9); MEAN CELL VOLUME 100.5 fl (80-96); MEAN PLT VOLUME 8.9 fl (7.5-11.1); PLATELET COUNT 50 10^3/uL (134-434); RBC 2.79 M/mm3 (4.00-5.60); RDW 23.6 % (11.9-15.9); WHITE BLOOD COUNT 13.5 K/mm3 (4.0-10.0)
[2022-05-22 08:32] LABS: INR 5.5 (0.83-1.09)
[2022-05-22 08:37] LABS: CHLORIDE 105 mmol/L (98-107); SODIUM 141 mmol/L (136-145)
[2022-05-22 08:40] LABS: CALCIUM 8.2 mg/dL (8.5-10.1)
[2022-05-22 08:42] LABS: ALBUMIN 2.7 g/dl (3.4-5.0); ANION GAP 17 MMOL/L (8-16); CO2 19 mmol/L (21-32); GLUCOSE,RANDOM 85 mg/dL (74-106); MAGNESIUM 2.7 mg/dL (1.8-2.4)
[2022-05-22 08:44] LABS: CREATININE 5.5 mg/dL (0.55-1.3)
[2022-05-22 08:45] LABS: BILIRUBIN,TOTAL 1.1 mg/dL (0.2-1); SGOT/AST 20 U/L (15-37); TOT PROT 5.6 g/dl (6.4-8.2)
[2022-05-22 08:46] LABS: ALK PHOS 45 U/L (45-117)
[2022-05-22 09:04] LABS: SGPT/ALT 17 U/L (13-61)
[2022-05-22 09:28] LABS: ANISOCYTOSIS 3+; MACROCYTOSIS 2+; OVALOCYTE 1+; PLATELET ESTIMATE DECREASED
[2022-05-22] MEDS: AMINO ACIDS/PROTEIN HYDROLYS 30 ML LIQUID.PKT PO SCH (10:45)
[2022-05-22] MEDS: PANTOPRAZOLE 40 MG TABLET PO SCH (10:46)
[2022-05-22] MEDS: CARVEDILOL 12.5 MG TABLET (FP) PO SCH ×2 (10:46→13:19)
[2022-05-22] MEDS: TAMSULOSIN HCL 0.4 MG CAP PO SCH (10:46)
[2022-05-22] MEDS: COLLAGENASE CLOSTRIDIUM HIST. 30 GRAMS TUBE TP SCH (10:46)
[2022-05-22] MEDS: NIACIN 500 MG TABLET PO SCH (10:46)
[2022-05-22] MEDS: CYANOCOBALAMIN 1,000 MCG TABLET (FP) PO SCH (10:47)
[2022-05-22] MEDS: ALLOPURINOL 100 MG TABLET (FP) PO SCH (10:47)
[2022-05-22] MEDS: VERICIGUAT 2.5 MG PO SCH ×2 (10:49→10:50)
[2022-05-22] MEDS: FUROSEMIDE 40 MG/4 ML INJECTABLE VIAL IVPUSH SCH (11:38)
[2022-05-22] MEDS: DIGOXIN 0.125 MG TABLET PO SCH (13:18)
[2022-05-23 00:32] VITALS: RESP 20
[2022-05-23] MEDS: ERYTHROMYCIN 0.5% OPHTHALMIC OINTMENT 3.5 GM TUBE OD SCH ×2 (03:32→09:41)
[2022-05-23] MEDS: CARVEDILOL 12.5 MG TABLET (FP) PO SCH (09:24)
[2022-05-23] MEDS: FUROSEMIDE 40 MG/4 ML INJECTABLE VIAL IVPUSH SCH (09:43)
[2022-05-23 10:33] VITALS: BP 114/47; TEMP 97.5
[2022-05-23] MEDS ORDERED: MORPHINE SULFATE/0.9% NACL/PF 100 MG/100 ML BAG IVPB SCH ×2 (12:30→21:11)
[2022-05-24] MEDS ORDERED: MORPHINE SULFATE/0.9% NACL/PF 100 MG/100 ML BAG IVPB SCH (00:52)
[2022-05-24 01:50] VITALS: PULSE 76
== END 2022-05-24 07:00 | disposition expired | DRG 291 ==
LOC: JER 18:13 → JERBED 20:34 → JICU 05-19 06:34 → J4W 05-19 16:23 → J4S 05-22 10:31
PROVIDERS: ADMIT Internal Medicine Pulmonary Disease; ATTEND Nurse Practitioner Acute Care
PROC: 30233N1 Transfusion of Nonautologous Red Blood Cells into Peripheral Vein, Percutaneous Approach (ICD-10-PCS; principal; 2022-05-18)
DX: I13.0 Hypertensive heart and chronic kidney disease with heart failure and stage 1 through stage 4 chronic kidney disease, or unspecified chronic kidney disease (principal); I50.23 Acute on chronic systolic (congestive) heart failure; J96.01 Acute respiratory failure with hypoxia; I48.21 Permanent atrial fibrillation; N17.9 Acute kidney failure, unspecified; L97.909 Non-pressure chronic ulcer of unspecified part of unspecified lower leg with unspecified severity; E46 Unspecified protein-calorie malnutrition; N18.9 Chronic kidney disease, unspecified; I83.009 Varicose veins of unspecified lower extremity with ulcer of unspecified site; I25.10 Atherosclerotic heart disease of native coronary artery without angina pectoris; N40.0 Benign prostatic hyperplasia without lower urinary tract symptoms; D64.9 Anemia, unspecified; Z68.23 Body mass index [BMI] 23.0-23.9, adult; E87.70 Fluid overload, unspecified
CPT/HCPCS: 0241U-QW; 36415; 36430; 70450-TC; 71045-TC-FY; 74230-TC-FY; 80053; 80162; 81003; 82308; 82550; 82803; 83605; 83735; 83880; 84100; 84484; 85025; 85027; 85610; 85730; 86850; 86900; 86901; 86922; 87040; 87804; 92611-GN; 93005; 93010; 94640; 97116-GP; 97162-GP; 99285-25; G0480; P9058